=== PATIENT | male | born 1940 | race Caucasian/White ===

== ENCOUNTER → 2018-12-10 | Outpatient (CLI) | payer MEDICARE, BC ==
[~2018-12-10] MED LIST: ANTIVERT 25MG25 MG PO; ASPIR-LOW81 MG PO; HCTZ; LISINOPRIL10 MG PO; MVI; VITAMIN E200 I1 PO
== END ==
LOC: COL.RAD 13:07
DX: M72.2 Plantar fascial fibromatosis (principal)
CPT/HCPCS: A9585

== ENCOUNTER 2023-02-21 09:30 | Outpatient (RCR) | payer MEDICARE, BC ==
[~2023-02-21 09:30] MED LIST changes: +ASPIRIN 81M81 MG/TA2 PO; +CEFTIN500 MG PO; +DOXYCYCLINE 10100 MG PO; +FERROUSAL325 MG PO; +MICROZIDE12.5 MG PO; +MULTI VITAMINS1 TAB PO; +NORVASC 5MG5 MG/TAB PO; +PREDNISONE20 MG PO; +PRINIVIL40 MG PO; +ZYLOPRIM 100MG100 MG PO
== END 2023-03-11 | disposition home or self-care (01) ==
LOC: WSST
DX: C01 Malignant neoplasm of base of tongue (principal)

== ENCOUNTER 2023-05-21 21:45 | Observation (INO) | payer MEDICARE, BC ==
[~2023-05-21] VITALS: Ht 172.7 cm; Wt 76.8 kg
[~2023-05-21 21:45] MED LIST changes: +MAGNESIUM; +NORCOELIX PO; +PRINIVIL20 MG PO; +PROTEIN; +ROXICODONE 55 MG/TAB PO; +SENOKOT S 50 MG1 TAB PO; +ZOFRAN8 MG PO
[2023-05-21] MEDS ORDERED: dexAMETHasone 4 MG/ML VIAL IV ONE (22:15)
[2023-05-21] MEDS ORDERED: fentaNYL 50 MCG/ML 2 ML VIAL IV ONE (22:15)
[2023-05-21] MEDS ORDERED: LR 1,000 ML IV ONE (22:15)
[2023-05-21] MEDS ORDERED: Ondansetron 4 MG/2 ML VIAL IV ONE (22:15)
[2023-05-21 22:57] LABS: HEMOGLOBIN 10.2 g/dl (13.5-18.0); MEAN CELL VOLUME 90 fl (80.0-100.0); MEAN CORPUSCULAR HEMOGLOBIN 32 pg (27-31); MEAN CORPUSCULAR HGB CONC 35 g/dl (33.0-37.0); MEAN PLATELET VOLUME 9.4 fl (7.4-10.4); PLATELET COUNT 174 K/mm3 (130-400); RED BLOOD COUNT 3.23 M/mm3 (4.20-5.60); REDCELL DISTRIBUTION WIDTH-CV 16.6 % (11.5-14.5)
[2023-05-21 23:17] LABS: ALBUMIN 2.9 gm/dL (3.4-4.8); BILIRUBIN,TOTAL 1.1 mg/dL (0.2-1.2); C-REACTIVE PROTEIN 14.48 mg/dL (0.00-0.50); CALCIUM 9.5 mg/dL (8.4-10.2); CREATININE, serum 1.07 mg/dL (0.72-1.25); POTASSIUM 4.6 mmol/L (3.5-4.5); TOTAL PROTEIN 5.9 gm/dL (6.2-8.1)
[2023-05-21 23:27] LABS: BAND 34 % (0-10); LYMPHOCYTE 5 % (20.0-51.0); NEUTROPHILS 48 % (42.0-75.2)
[2023-05-21 23:29] LABS: ANISOCYTOSIS 1+; PLATELET ESTIMATE NORMAL (NORMAL)
[2023-05-22] VITALS (11 sets, daily range): BP systolic 116–162; BP diastolic 62–88; PULSE 100–114; TEMP 97.3–98.8
[2023-05-22] MEDS ORDERED: fentaNYL 50 MCG/ML 2 ML VIAL IV ONE (00:30)
[2023-05-22] MEDS ORDERED: NS 1,000 ML IV ONE (00:30)
[2023-05-22] MEDS ORDERED: Ondansetron 4 MG/2 ML VIAL IV PRN (02:30)
[2023-05-22] MEDS ORDERED: Acetaminophen 325 MG TAB PO PRN ×2 (02:30→03:15)
[2023-05-22] MEDS ORDERED: NS 1,000 ML IV SCH (02:30)
[2023-05-22] MEDS ORDERED: Morphine 4 MG/ML VIAL IV PRN ×2 (03:00→13:45)
[2023-05-22] MEDS ORDERED: hydrALAZINE 20 MG/ML 1 ML VIAL IV PRN (03:00)
[2023-05-22] MEDS ORDERED: dexAMETHasone 10 MG/ML VIAL IV ONE (03:15)
--- NOTE | 2023-05-22 03:30 | NUR ---
PT ARRIVED TO ROOM 346 FROM ED FOR POST CHEMO N/V & THRUSH. AMBULATED TO BED WITH STANDBY ASSIST. A&O X4. VSS ON ROOM AIR. PT RATING BOTH HIS PAIN & NAUSEA A 3/10, DENIES THE NEED FOR MEDS AT THIS TIME. STATES HIS PAIN IS IN HIS NECK/THROAT & IS NOT NEW, & IS FROM THE RADIATION. PORT TO RIGHT CHEST ACCESSED IN ED & IVF STARTED PER MAY. PT HAS PEG TUBE WITH GAUZE DRSG & IS CDI. PT DENYING FURTHER NEEDS. FALL PRECAUTIONS IN PLACE &CALL LIGHT IN REACH
--- NOTE | 2023-05-22 08:00 | NUR ---
Pt sitting at bedside with tray table in front of them. Provider's team just leaving room. Pt is A&O. VSS. Heart and lung sounds are normal. Lungs are diminished in bases. Pt is LOCO when sitting up but unlabored when laying in bed. Pt coughing mucus up. Pt reports nausea, but vomiting. Pt denies pain other than his baseline throat pain. ABD is round, soft, and non-tender. Pt reported a soft BM this AM. Pt has Portacath in R chest (accessed in ER) with NS at 70 mL/hr. Pt's PEG tube is in place and dressing is CDI. Pulled 10 mL of light green gastric fluid residual. Flushed with 30 mLs of water, administered meds, and flushed with a final 30 mLs of water. PEG is clamped. Palpable pulses in all four extremities. No reports of swelling. Pt has call light in reach and bed alarm on. Pt refused non-slip socks while in bed.
[2023-05-22] MEDS ORDERED: Pantoprazole 40 MG in NS 10 ML IV SCH (09:00)
[2023-05-22] MEDS ORDERED: chemo (09:18)
[2023-05-22] MEDS ORDERED: Gabapentin 100 MG CAP PO SCH (10:30)
[2023-05-22] MEDS ORDERED: OLANZapine 5 MG TAB PO SCH (10:30)
[2023-05-22] MEDS ORDERED: Dextrose 50% Water 25 GM/50 ML SYRINGE IV PRN (10:45)
[2023-05-22] MEDS ORDERED: Glucagon 1 MG VIAL IM PRN (10:45)
[2023-05-22] MEDS ORDERED: Dextrose (Glucose) 15 GM (4 x 3.75 GM) Chewable TABLET PACK PO PRN (10:45)
[2023-05-22] MEDS ORDERED: CISPLATIN 1 MG/ML IV (11:16)
[2023-05-22 11:42] LABS: MAGNESIUM 1.7 mg/dL (1.6-2.6); PHOSPHOROUS 2.3 mg/dL (2.3-4.7)
[2023-05-22] MEDS ORDERED: Insulin Lispro (HumaLOG) SQ SCH (12:00)
--- NOTE | 2023-05-22 12:11 | NUR ---
PATIENT ALERT AND ORIENTED X4. VSS. PATIENT HERE FOR N/V. PATIENT GIVEN ZYPREXA THROUGH PEG TUBE TO ASSIST WITH N/V. PATIENT REPORTS THAT THE MEDICATION DID HELP. PORTACATH TO RIGHT UPPER CHEST WITH NS RUNNING AT 75ML/HOUR. PATIENT DENIES ANY PAIN. DRESSING TO PEG TUBE CDI. PATIENT RESTING IN BED. CALL LIGHT IN REACH.
[2023-05-22] MEDS ORDERED: CINVANTI130 MG/18 IV (12:35)
[2023-05-22] MEDS ORDERED: SUSTOL10 MG/0.4 SQ (12:35)
[2023-05-22] MEDS ORDERED: DEXAMETHASONE1 MG/ML PO (12:37)
[2023-05-22] MEDS ORDERED: [UNRECOGNIZED DRUG - OTHER] IV (12:39)
[2023-05-22] MEDS ORDERED: MAGNESIUM IV (12:40)
--- NOTE | 2023-05-22 12:57 | NUR ---
Pt's partner (Ronda) at bedside. Per Pt, ok for Ronda to stay during feeding. Administered 4 oz of TWOCAL HN. Pt tolerated well. Ronda had questions regarding Pt's pain meds. Answered questions. Pt reports 7/10 pain in throat. Administered pain meds as per EMAR. Will re-evaluate Pt in 30-40 mins.
--- NOTE | 2023-05-22 13:15 | NUR ---
Food Cashier attended clinical rounds with the team. SHEREE spoke with Yaquelin Dietitian who advised patient has a PEG Tube and may need an updated order sent to [facility] as his formula may need to change. SHEREE met with patient to discuss discharge planning. Patient lives in [place] with his friend, Ronda (ph#[phone]) and sees Dr. Ritchie for primary care. Patient gets medications from [facility] with no difficulties. Patient reported he is independent with ADLS and still drives. Patient gets his feeding tube supplies through [facility]. Patient believes he has completed a DPOA-HC designating his sons, Seth (ph#[phone]) and Patrick (ph#[phone]). Patient plans to return home at time of discharge. SHEREE contacted [employer] Food Cashier at Dr. Ritchie's office who advised they do have a copy and will fax it over. Discharge Plan; Home, may need updated formula order sent to [facility]
[2023-05-22] MEDS ORDERED: fentaNYL 12 MCG 72 HR PATCH TD SCH (13:45)
--- NOTE | 2023-05-22 14:07 | NUR ---
Applied Fentanyl patch to upper left chest. Pt and family had a few questions. Answered questions.
--- NOTE | 2023-05-22 17:30 | NUR ---
Pt being transferred to Medical room 356. Gave report to JORGE Beck.
--- NOTE | 2023-05-22 19:00 | NUR ---
PATIENT ALERT AND ORIENTED. PATIENT CAME FROM SURGICAL. PATIENT HAS A LEFT UPPER CHEST FENTANYLL PATCH. PATIENT IS NPO RECEIVES PEGTUBE FEEDINGS. PATIENT HAS RASPY LOW VOICE DUE TO HARD TO SPEAK FROM PAIN ON MOUTH. PATIENT FLUIDS RUNNING AT 75ML/HR. PATIENT HAS ABUNDANT MUCUS DRAINAGE. PATIENT FAMILY AT BEDSIDE. CALL LIGHT WITHIN REACH. BED AT LOWEST POSITION.
--- NOTE | 2023-05-22 19:15 | NUR ---
PATIENT RESTING IN BED WATCHING TV WITH FRIEND AT BEDSIDE WITH NO ACUTE DISTRESS NOTED. PATIENT ON ROOM AIR. NS INFUSING INTO RIGHT UPPER CHEST PORT WITH NO COMPLICATIONS NOTED. DRESSING TO PORT NOTED TO BE PULLING UP ON LEFT SIDE. PEG TUBE INTACT AND PATENT. PATIENT DENIES ANY NEEDS AT THIS TIME. PATIENT CARE ASSUMED FROM [facility]. BED IN LOW POSITION WITH WHEELS LOCKED WITH RAILS UP X3 AND CALL LIGHT WITHIN REACH.
--- NOTE | 2023-05-22 21:30 | NUR ---
PATIENT RESTING IN BED LYING ON LEFT SIDE WITH HEAD OF BED ELEVED 30 DEGREES WITH TV ON WITH NO FAMILY PRESENT WITH NO ACUTE DISTRESS NOTED. PATIENT ON ROOM AIR. NS INFUSING INTO RIGHT CHEST PORT WITH NO COMPLICATIONS NOTED. MEDICATION ADMINISTRATION AND TUBE FEEDING COMPLETED AT THIS TIME. PATIENT TOELRATED WELL. DRESSING TO CHEST PORT CHANGED. PATIENT TOELRATED WELL. ALL NEEDS MET. BED IN LOW POSITION WITH WHEELS LOCKED WITH RAILS UP X3 AND CALL LIGHT WITHIN REACH.
[2023-05-23] VITALS (12 sets, daily range): BP systolic 123–213; BP diastolic 62–86; PULSE 74–93; TEMP 97.7–98.5
[2023-05-23 06:46] LABS: MEAN CELL VOLUME 92 fl (80.0-100.0); MEAN CORPUSCULAR HGB CONC 34 g/dl (33.0-37.0); MEAN PLATELET VOLUME 9.7 fl (7.4-10.4); PLATELET COUNT 155 K/mm3 (130-400); RED BLOOD COUNT 2.61 M/mm3 (4.20-5.60); REDCELL DISTRIBUTION WIDTH-CV 17.2 % (11.5-14.5)
[2023-05-23 06:55] LABS: CALCIUM 8.9 mg/dL (8.4-10.2); CREATININE, serum 0.8 mg/dL (0.72-1.25); MAGNESIUM 1.8 mg/dL (1.6-2.6); POTASSIUM 4.1 mmol/L (3.5-4.5)
[2023-05-23 06:56] LABS: HEMATOCRIT 23.9 % (42.0-52.0); HEMOGLOBIN 8.2 g/dl (13.5-18.0); MEAN CORPUSCULAR HEMOGLOBIN 31 pg (27-31)
[2023-05-23 07:19] LABS: ANISOCYTOSIS 1+; BAND 5 % (0-10); LYMPHOCYTE 13 % (20.0-51.0); METAMYELOCYTE 1 % (0-0); NEUTROPHILS 73 % (42.0-75.2); PLATELET ESTIMATE NORMAL (NORMAL)
--- NOTE | 2023-05-23 08:54 | NUR ---
ASSESSMENT COMPLETE. PATIENT STATES THAT AT THIS TIME HE IS NOT HAVING ANY "BODY PAIN" BUT REPORTS THROAT PAIN 4/10. 120 ML GRAVITY TUBE FEED DONE AT TIME OF ASSESSMENT. DENIES ANY FURTHER NEEDS AT THIS TIME
[2023-05-23] MEDS ORDERED: OLANZapine 5 MG Orally-Disinteg TAB PO SCH (09:00)
--- NOTE | 2023-05-23 10:45 | NUR ---
Initial visit; Patient unfamiliar with what patient said when she introduced herself and declined her visit. Financial Associate offered God's blessings and wished Leroy well.
--- NOTE | 2023-05-23 16:24 | NUR ---
Infant Caregiver received a copy of DPOA-HC designating patient's sons and placed a copy on chart. SW also contacted patient's friend, Ronda who expressed no concerns with discharge plan for home. Ronda advised patient's sons are aware of his hospitalization. SHEREE provided updated nutrition order to [facility].
--- NOTE | 2023-05-23 18:52 | NUR ---
PATIENT SITTING UP ON EDGE OF BED WORKING ON COMPUTER. NS INFUSING INTO RIGHT UPPER CHEST PORT WITH NO COMPLICATIONS. PEG TUB INTACT AND PATENT. PATIENT DENIES ANY NEEDS AT THIS TIME. PATIENT CARE ASSUMED FROM [facility]. BED IN LOW POSITION WITH WHEELS LOCKED WITH RAILS UP X2 AND CALL LIGHT WITHIN REACH.
--- NOTE | 2023-05-23 19:12 | NUR ---
PATIENT SITTING UP ON EDGE OF BED WITH TV ON WORKING ON LAPTOP. PATIENT REQUESTED HELP TO PUT LAPTOP UP IN CABINET. RED BAG TAKEN OUT OF CABINET AND LAPTOP PLACED IN RED BAG. PATIENT THANKED PRIMARY NURSE. ASSESSMENT COMPLETED AT THIS TIME. MORE KLENEX GIVEN. PATIENT DENIES ANY OTHER NEEDS. BED IN LOW POSITION WITH WHEELS LOCKED WITH RAILS UP X2 AND CALL LIGHT WITHIN REACH.
--- NOTE | 2023-05-23 22:15 | NUR ---
PATIENT RESTING IN BED WITH TV ON WITH NO ACUTE DISTRESS NOTED. PATIENT ON ROOM AIR. MEDICATION ADMINISTRATION AND TUBE FEED COMPLETED AT THIS TIME. PATIENT TOLERATED WELL. PATIENT DENIES ANY NEEDS. BED IN LOW POSITION WITH WHEELS LOCKED WITH RAILS UP X2 AND CALL LIGHT WITHIN REACH.
[2023-05-24] VITALS (7 sets, daily range): BP systolic 132–156; BP diastolic 79–85; PULSE 84–89; TEMP 97.5–98.1
[2023-05-24 06:50] LABS: MEAN CELL VOLUME 92 fl (80.0-100.0); MEAN CORPUSCULAR HGB CONC 35 g/dl (33.0-37.0); MEAN PLATELET VOLUME 9.6 fl (7.4-10.4); PLATELET COUNT 172 K/mm3 (130-400); RED BLOOD COUNT 2.73 M/mm3 (4.20-5.60); REDCELL DISTRIBUTION WIDTH-CV 17.2 % (11.5-14.5)
[2023-05-24 06:59] LABS: HEMOGLOBIN 8.8 g/dl (13.5-18.0); MEAN CORPUSCULAR HEMOGLOBIN 32 pg (27-31)
[2023-05-24 07:06] LABS: CALCIUM 8.7 mg/dL (8.4-10.2); CREATININE, serum 0.76 mg/dL (0.72-1.25); PHOSPHOROUS 2.5 mg/dL (2.3-4.7); POTASSIUM 3.9 mmol/L (3.5-4.5)
[2023-05-24 08:11] LABS: ANISOCYTOSIS 1+; BAND 25 % (0-10); LYMPHOCYTE 12 % (20.0-51.0); NEUTROPHILS 52 % (42.0-75.2); PLATELET ESTIMATE NORMAL (NORMAL)
--- NOTE | 2023-05-24 08:14 | NUR ---
ASSESSMENT COMPLETE. PATIENT STRUGGLING WITH HIS COUGH THIS MORNING DURING ASSESSMENT. TOLERATED FEEDING WELL AND DENIES ANY ABDOMINAL DISCOMFORT. STATES THAT HIS THROAT CONTINUES TO FEEL BETTER. ASSISTED PATIENT TO RESTROOM AND BACK TO BED. DENIES ANY FURTHER NEEDS AT THIS TIME.
[2023-05-24] MEDS ORDERED: FENTANYL 12MCG TD (12:22)
--- NOTE | 2023-05-24 13:06 | NUR ---
PATIENT RECEIVED DISCHARGE INSTRUCTIONS. ACKNOWLEDGED UNDERSTANDING OF FOLLOW UP APPOINTMENTS AND NEW MEDICATIONS-FENTANYL PATCH 12MCG ADDED. NO ISSUES. DEACCESSED CHEST PORT. CLEAN, DRY, AND INTACT. PATIENT WAITING FOR PARTNER TO PICK HIM UP AND WILL DISCHARGE.
--- NOTE | 2023-05-24 15:07 | NUR ---
Trouble Clerk spoke with Prisca at [facility] who advised patient's formula is ready for pick and shovel man. SW coordinated with patient's friend, Ronda who advised she will pick it up this afternoon when patient discharges, around 1600. SHEREE provided this time to Prisca.
[2023-05-25] MEDS ORDERED: fentaNYL Patch Removal/Drugbuster TD SCH (13:45)
== END 2023-05-24 14:00 | disposition home or self-care (01) ==
LOC: COL.ER 21:45 → SURG 05-22 02:27 → MEDICAL 05-22 02:32 → SURG 05-22 17:21 → MEDICAL 05-22 19:00
PROVIDERS: Emergency Medicine; Internal Medicine; Physician Assistant; ADMIT Internal Medicine
DX: R11.2 Nausea with vomiting, unspecified (principal); R06.6 Hiccough; C14.0 Malignant neoplasm of pharynx, unspecified; B37.0 Candidal stomatitis; I10 Essential (primary) hypertension; K21.9 Gastro-esophageal reflux disease without esophagitis; E87.1 Hypo-osmolality and hyponatremia; E44.0 Moderate protein-calorie malnutrition; R63.4 Abnormal weight loss; G89.4 Chronic pain syndrome; Z79.899 Other long term (current) drug therapy; Z79.891 Long term (current) use of opiate analgesic; Z93.1 Gastrostomy status; Z68.25 Body mass index [BMI] 25.0-25.9, adult; Z92.3 Personal history of irradiation
CPT/HCPCS: C9113; G0378; J0780; J1100; J1450; J1650; J2270; J2405; J3010; J7030; J7120

== ENCOUNTER 2023-07-05 08:15 | Outpatient (RCR) | payer MEDICARE, BC ==
[~2023-07-05 08:15] MED LIST changes: +CINVANTI130 MG/18 IV; +CISPLATIN 1 MG/ML IV; +DEXAMETHASONE1 MG/ML PO; +FENTANYL 12MCG TD; +FENTANYL 25 MCG TD; +MAGNESIUM IV; +MIRALAX PA17 GM/Dose PO; +MUCUS RELIEF200 MG PO; +REGLAN 5MG T5 MG/TAB PO; +SUSTOL10 MG/0.4 SQ; +ZOFRAN ODT8 MG PO; +[UNRECOGNIZED DRUG - OTHER] IV; +chemo
== END 2023-07-11 11:54 ==
LOC: WSST 08:15
DX: R13.10 Dysphagia, unspecified (principal); C01 Malignant neoplasm of base of tongue

== ENCOUNTER 2023-08-01 09:30 | Outpatient (RCR) | payer MEDICARE, BC | END 2023-08-10 | disposition home or self-care (01) | LOC: WSST | DX: R13.10 Dysphagia, unspecified (principal); C10.9 Malignant neoplasm of oropharynx, unspecified ==